=== PATIENT | male | born 1990 | race Two or more races ===

== ENCOUNTER 2024-07-13 09:04 | Inpatient (IN) | payer MEDICAID ==
[~2024-07-13] VITALS: Ht 167.6 cm; Wt 87.5 kg
[2024-07-13 10:48] LABS: Urine Bacteria FEW /hpf (None Seen); Urine Blood 2+ /uL (Negative); Urine Mucus MODERATE (None Seen); Urine Protein, UAD 2+ (Negative); Urine Specific Gravity 1.028 (1.001-1.035); Urine Urobilinogen Normal (Negative); Urine WBC 351 /hpf (0 - 3); Urine pH 6.5 (5.0-9.0)
[2024-07-13 10:58] LABS: Urine Clarity Cloudy (Clear); Urine Color Yellow (Yellow)
[2024-07-13 11:07] LABS: Basophils # (auto) 0 10 ^3/uL (0-0.2); Basophils % (auto) 0.3 % (0.0-2.0); Eosinophils # (auto) 0 10 ^3/uL (0-0.8); Eosinophils % (auto) 0.1 % (0.0-7.0); Hematocrit 33.1 % (41.0-53.0); Hemoglobin 11.5 g/dL (13.5-17.5); Lymphocytes # (auto) 1.3 10 ^3/uL (0.4-5.4); Lymphocytes % (auto) 7.5 % (10.0-50.0); Mean Corpuscular Hemoglobin 28.8 pg (28.0-32.0); Mean Corpuscular Hgb Conc. 34.7 g/dL (32.0-36.0); Mean Corpuscular Volume 83.1 fL (80.0-100.0); Monocytes % (auto) 6.1 % (0.0-12.0); Neutrophils # (auto) 14.5 10 ^3/uL (1.6-8.6); Platelet Count (auto) 308 10^3/uL (140-450); Red Blood Cells 3.98 10^6/uL (4.5-5.90); Red Cell Distribution Width 15.2 % (11.8-14.3); White Blood Cell 16.8 10^3/uL (4.4-10.8)
[2024-07-13] MEDS: SODIUM CHLORIDE 0.9% 1,000 ML IV ONE ×2 (11:19→12:29)
[2024-07-13] MEDS: TAMSULOSIN HYDROCHLORIDE 0.4 MG CAP PO ONE (11:24)
[2024-07-13 11:25] LABS: Chloride 99 mmol/L (98-107); Potassium 3.4 mmol/L (3.5-5.1); Sodium 133 mmol/L (136-145)
[2024-07-13 11:26] LABS: Anion Gap 8 (5-15); Calcium 10.1 mg/dL (8.7-10.4); Carbon Dioxide 26 mmol/L (20-30)
[2024-07-13] MEDS: KETOROLAC TROMETH 30 MG/ML 1ML VIAL IV ONE (11:29)
[2024-07-13 11:31] LABS: Glucose 139 mg/dL (74-106)
[2024-07-13 11:32] LABS: BUN/Creatinine Ratio 11.4 (10.0-20.0); Blood Urea Nitrogen 14 mg/dL (9-23)
[2024-07-13 11:49] VITALS: RESP 16
[2024-07-13] MEDS: SODIUM CHLORIDE 0.9% 1,000 ML IV SCH (15:30)
[2024-07-13] MEDS ORDERED: DEXTROSE (50%) 50ML SYRG IV PRN (15:45)
[2024-07-13] MEDS: POTASSIUM EFFERVESENT TAB 25 MEQ GT ONE (16:57)
[2024-07-13] MEDS: InsuLIN REG 1unit/0.01ml Soln (100units/ml) SC SCH (17:00)
[2024-07-13] MEDS: ACCU-CHEK COMFORT CURVE STRIP VI SCH (17:00)
[2024-07-13] MEDS: KETOROLAC TROMETH 30 MG/ML 1ML VIAL IV PRN (17:31)
[2024-07-13] MEDS: PIPERACILLIN-TAZOB 3.375GM 100 ML IV SCH (22:28)
[2024-07-14] MEDS: ACETAMINOPHEN 325 MG TAB PO PRN (03:35)
[2024-07-14 04:55] VITALS: PULSE 122; RESP 18; O2SAT 94
[2024-07-14] MEDS: ONDANSETRON HCL 4 MG/2 ML VIAL IV PRN (05:11)
[2024-07-14 07:36] LABS: Basophils # (auto) 0 10 ^3/uL (0-0.2); Basophils % (auto) 0.3 % (0.0-2.0); Eosinophils # (auto) 0 10 ^3/uL (0-0.8); Eosinophils % (auto) 0.1 % (0.0-7.0); Hemoglobin 9.2 g/dL (13.5-17.5); Lymphocytes % (auto) 5.5 % (10.0-50.0); Mean Corpuscular Hemoglobin 28.1 pg (28.0-32.0); Mean Corpuscular Volume 82.6 fL (80.0-100.0); Monocytes # (auto) 1.4 10 ^3/uL (0-1.3); Monocytes % (auto) 7.8 % (0.0-12.0); Neutrophils # (auto) 15.1 10 ^3/uL (1.6-8.6); Neutrophils % (auto) 86.3 % (37.0-80.0); Platelet Count (auto) 217 10^3/uL (140-450); Red Blood Cells 3.27 10^6/uL (4.5-5.90); White Blood Cell 17.5 10^3/uL (4.4-10.8)
[2024-07-14 07:44] LABS: Anion Gap 10 (5-15); Carbon Dioxide 22 mmol/L (20-30); Chloride 101 mmol/L (98-107); Potassium 3.2 mmol/L (3.5-5.1); Sodium 133 mmol/L (136-145)
[2024-07-14 07:46] LABS: Calcium 8.6 mg/dL (8.7-10.4)
[2024-07-14 07:50] LABS: Glucose 127 mg/dL (74-106)
[2024-07-14 07:57] LABS: Blood Urea Nitrogen 24 mg/dL (9-23)
[2024-07-14 08:57] VITALS: PULSE 116; RESP 18; O2SAT 94
[2024-07-14] MEDS: SODIUM CHLORIDE 0.9% 1,000 ML IV ONE (13:49)
[2024-07-14] MEDS: IBUPROFEN 600 MG TAB PO ONE (15:42)
[2024-07-14 19:30] VITALS: PULSE 121; RESP 18; O2SAT 98
[2024-07-14 21:00] VITALS: BP 104/63; PULSE 110; RESP 20; TEMP 98.2; O2SAT 95
[2024-07-15 05:00] VITALS: BP 128/79; PULSE 115; RESP 20; TEMP 99.2; O2SAT 100
== END 2024-07-15 06:11 | disposition left against medical advice (07) | DRG 466 ==
LOC: ER 09:04 → OVERFLOW 15:32 → EAST 07-14 20:52
PROVIDERS: ADMIT Registered Nurse General Practice; ATTEND Internal Medicine
DX: T83.89XA Other specified complication of genitourinary prosthetic devices, implants and grafts, initial encounter (principal); E87.6 Hypokalemia; Z53.29 Procedure and treatment not carried out because of patient's decision for other reasons; N10 Acute pyelonephritis; R73.9 Hyperglycemia, unspecified; N20.0 Calculus of kidney; Z79.899 Other long term (current) drug therapy; Y84.8 Other medical procedures as the cause of abnormal reaction of the patient, or of later complication, without mention of misadventure at the time of the procedure; Y92.89 Other specified places as the place of occurrence of the external cause
CPT/HCPCS: 36415; 74176; 80048; 81001; 82962; 83036; 85025; 87040; 87086; G0378; J1815; J1885; J2405; J2543